=== PATIENT | male | born 1990 | race Caucasian/White ===

== ENCOUNTER 2022-09-05 08:34 | Day surgery (SDC) | payer BC ==
[2022-09-04 12:56] VITALS: BMI 30.5
[2022-09-05] MEDS ORDERED: Lidocaine 2% MPF 10 ML AMP (For Epidural Use) ONE (09:35)
[2022-09-05] MEDS ORDERED: PROPOFOL 40 ML ONE (09:35)
[2022-09-05] MEDS ORDERED: Hydrocortisone Sod Succ/PF 100 mg/2 ml Vial ONE (11:17)
[2022-09-05] MEDS ORDERED: PROPOFOL 20 ML ONE ×2 (11:40→11:50)
== END 2022-09-05 12:33 | disposition home or self-care (01) ==
LOC: CSHSDC 08:34
PROVIDERS: ATTEND Internal Medicine Gastroenterology
PROC: 0DBP8ZZ Excision of Rectum, Via Natural or Artificial Opening Endoscopic (ICD-10-PCS; principal; 2022-09-05)
DX: K52.9 Noninfective gastroenteritis and colitis, unspecified (principal); K50.90 Crohn's disease, unspecified, without complications; F90.9 Attention-deficit hyperactivity disorder, unspecified type; Z88.8 Allergy status to other drugs, medicaments and biological substances; Z79.899 Other long term (current) drug therapy
CPT/HCPCS: 88305; J1720; J2704